=== PATIENT | male | born 1960 | race Caucasian/White ===

== ENCOUNTER → 2016-07-11 | Outpatient (CLI) | payer MEDICARE, MEDICAID ==
[~2016-07-11] MED LIST: CEPH500T PO; HYDR12.56 PO; MULT-116 PO; NAPR375T5 PO; OXYC1TAB87 PO; OXYC5TAB71 PO; Trimethoprim/Sulfamethoxazole PO
[2016-07-11 15:01] LABS: ANION GAP 17.9 MEQ/L (3-15)
--- NOTE | 2016-07-11 15:22 | Diagnostic Imaging Report ---
EXAM: RENAL ULTRASOUND DATE: July 11, 2016. COMPARISON: Renal ultrasound, December 10, 2013. INDICATION: A 56-year-old male, hydronephrosis. PROCEDURE: Two-dimensional grayscale and color Doppler examination of the kidneys is performed. FINDINGS: Right kidney: There is no sonographically demonstrated right renal stone or solid or cystic mass. No hydronephrosis. The right kidney measures 11.5 cm x 4.4 cm. There is thinning of the right renal cortex. Left kidney: There are echogenic foci in the region of the left renal pyramids which may relate to nonobstructing stones. There are nonobstructing left renal stones seen on comparison CT abdomen of July 01, 2011. There is no sonographically demonstrated solid or cystic renal mass on the left. No hydronephrosis. The left kidney measures 11.8 cm x 4.9 cm. Bladder: The urinary bladder is not imaged. IMPRESSION: 1. Echogenic foci on the left which likely represent nonobstructing renal stones. 2. No hydronephrosis. 3. Right renal cortical thinning. Dictated by: Dictated on workstation # [id number]
== END ==
LOC: RAD 14:19
PROVIDERS: ATTEND Urology
DX: N13.30 Unspecified hydronephrosis (principal)
CPT/HCPCS: 36415; 76770; 80048